=== PATIENT | male | born 1960 | race Caucasian/White ===

== ENCOUNTER → 2016-10-10 | Outpatient (CLI) | payer OTHER ==
[~2016-10-10] MED LIST: ONDA4TAB7 SL
[2016-10-10 09:37] LABS: BASO % 0.3 %; BASO ABS # 0.02 K/uL (0-0.2); COMPLETE YES; EOS % 2.5 %; HEMATOCRIT 47.1 % (42-52); IG% 0.4 %; LYMPH % 41.8 %; LYMPH ABS # 2.99 K/uL (1.2-3.4); MEAN CELL VOLUME 89.4 fL (80-100); MEAN CORPUSCULAR HEMOGLOBIN 30.4 pg (25-34); MEAN PLATELET VOLUME 9.1 fL (7.4-10.4); MONO % 11.5 %; NEUT % 43.5 %; PLATELET COUNT 309 K/uL (130-400); RED BLOOD COUNT 5.27 M/uL (4.7-6.1); WHITE BLOOD COUNT 7.15 K/uL (4.8-10.8)
[2016-10-10 10:09] LABS: ALT/SGPT 58 U/L (12-78); BLOOD UREA NITROGEN 10 mg/dl (7-18); CARBON DIOXIDE 31 mmol/L (21-32); CHLORIDE 107 mmol/L (98-107); CHOLESTEROL 110 mg/dl (0-200); GLUCOSE 102 mg/dl (70-99); POTASSIUM 4.2 mmol/L (3.5-5.1); SODIUM 144 mmol/L (136-145); TRIGLYCERIDES 73 mg/dl (0-150); VERY LOW DENSITY LIPOPROT CALC 15 mg/dl
[2016-10-10 10:19] LABS: ALB/GLOB RATIO 1.1 (0.9-2); ALKALINE PHOSPHATASE 60 U/L (45-117); AST/SGOT 26 U/L (15-37); CALCIUM 9.5 mg/dl (8.5-10.1); FERRITIN 25.7 ng/ml (8.0-388.0); HDL CHOLESTEROL 37 mg/dl; LDL CHOLESTEROL CALCULATED 58 mg/dl; PROSTATE SPECIFIC ANTIGEN 0.627 ng/ml (0.000-4.000)
== END | disposition home or self-care (01) ==
LOC: C.LAB 08:50
PROVIDERS: ATTEND Internal Medicine
DX: Z00.00 Encounter for general adult medical examination without abnormal findings (principal); E55.9 Vitamin D deficiency, unspecified; E83.119 Hemochromatosis, unspecified; I10 Essential (primary) hypertension; Z12.5 Encounter for screening for malignant neoplasm of prostate

== ENCOUNTER → 2017-09-28 | Outpatient (CLI) | payer OTHER ==
[2017-09-28 17:02] LABS: ALBUMIN 4.1 gm/dl (3.4-5.0); ALT/SGPT 74 U/L (12-78); AST/SGOT 36 U/L (15-37); BLOOD UREA NITROGEN 8 mg/dl (7-18); CALCIUM 8.7 mg/dl (8.5-10.1); CARBON DIOXIDE 26 mmol/L (21-32); CHOLESTEROL 95 mg/dl (0-200); CREATININE 1.03 mg/dl (0.60-1.40); GLUCOSE 73 mg/dl (70-99); POTASSIUM 4.1 mmol/L (3.5-5.1); SODIUM 139 mmol/L (136-145)
[2017-09-28 17:05] LABS: ALKALINE PHOSPHATASE 66 U/L (45-117); LDL CHOLESTEROL CALCULATED 44 mg/dl; TOTAL PROTEIN 8.1 gm/dl (6.4-8.2)
== END | disposition home or self-care (01) ==
LOC: C.LAB 15:21
PROVIDERS: ATTEND Physician Assistant Medical
DX: Z00.00 Encounter for general adult medical examination without abnormal findings (principal); I10 Essential (primary) hypertension; E55.9 Vitamin D deficiency, unspecified